=== PATIENT | female | born 1995 | race African-American/Black ===

== ENCOUNTER 2019-03-02 18:32 | Emergency (ER) | payer OTHER ==
[2019-03-02] MEDS: ACETAMINOPHEN 500 MG TAB PO ×2 (20:10)
[2019-03-02] MEDS: LIDOCAINE 1% (MDV) 10 ML INJ INJ (20:20)
[2019-03-02] MEDS: LIDOCAINE 1% (MPF) 5 ML VIAL INJ (20:20)
== END 2019-03-02 21:22 | disposition home or self-care (01) ==
LOC: FTE 21:22
DX: S61.411A Laceration without foreign body of right hand, initial encounter (principal); W26.0XXA Contact with knife, initial encounter; Y92.9 Unspecified place or not applicable
CPT/HCPCS: 12001; 99282-25